=== PATIENT | female | born 1935 | race Caucasian/White ===

== ENCOUNTER 2018-06-10 16:18 | Inpatient (IN) | payer OTHER, MEDICAID ==
[~2018-06-10] VITALS: Ht 157.5 cm; Wt 41.7 kg
[2018-06-10 16:22] VITALS: BP 168/72
[2018-06-10] MEDS ORDERED: ACET1TAB93 PO (16:41)
[2018-06-10] MEDS ORDERED: DOCU-299 PO (16:41)
[2018-06-10] MEDS ORDERED: RISP0.5T3 PO (16:41)
[2018-06-10] MEDS ORDERED: AMLO-272 PO (16:41)
[2018-06-10] MEDS ORDERED: MULT-153 PO (16:41)
--- NOTE | 2018-06-10 16:42 | NUR ---
PATIENT BIB AMBULANCE FROM [facility] TO ED WITH THE CHIEF C/O EXCESS DIARRHEA. PT HAD DIARRHEA X6 TODAY. NO BLOOD IN DIARRHEA PER AMBULANCE PERSONNEL REPORT. PT DENIES N/V AT THIS TIME. ABDOMEN SOFT, ROUND AND NON-TENDER. ACTIVE BOWEL SOUND. SKIN IS PINK/WARM/DRY. AAOX2: BASEELINE. HX OF DEMENTIA. LUNGS CLEAR BL; HR EVEN AND REGULAR; PT DENIES ANY FEVER, CP, SOB, OR COUGH AT THIS TIME. PATIENT STATES PAIN OF 0/10 AT THIS TIME; VSS; PATIENT POSITIONED FOR COMFORT; HOB ELEVATED; BEDRAILS UP X2; BED DOWN. ER MD MADE AWARE OF PT STATUS.
--- NOTE | 2018-06-10 17:04 | NUR ---
REPORT GIVEN TO
--- NOTE | 2018-06-10 18:00 | NUR ---
PATIENT RESTING AT THIS TIME. NO SIGNS OF DISTRESS.
[2018-06-10] MEDS: NACL 0.9% 1,000 ML IV SCH ×3 (18:48→22:02)
--- NOTE | 2018-06-10 19:10 | NUR ---
Pt report given to MONTY SALES. Transfer of care at this time.
[2018-06-10 19:34] LABS: ANION GAP 13.5 (8-16); ASPARTATE AMINOTRANSFERASE 24 U/L (15-37); CARBON DIOXIDE 27.7 mmol/L (21-32); CHLORIDE 99 mmol/L (98-107); CREATININE 0.5 mg/dL (0.6-1.3); GLUCOSE 95 mg/dL (74-106); POTASSIUM 4.2 mmol/L (3.5-5.1); SODIUM SERUM 136 mmol/L (136-145); TOTAL BILIRUBIN 0.5 mg/dL (0.0-1.0); UREA NITROGEN, BLOOD 15 mg/dL (7-18)
[2018-06-10 19:40] LABS: APPEARANCE,URINE CLOUDY (CLEAR); BILIRUBIN,URINE NEGATIVE (NEGATIVE); BLOOD, URINE TRACE-I (NEGATIVE); COLOR,URINE YELLOW (YELLOW); LEUKOCYTE ESTERASE ,URINE 3+ (NEGATIVE); NITRITE, URINE NEGATIVE (NEGATIVE); PH,URINE 7.5 (5.0-9.0); UGLUCOSE NEGATIVE (NEGATIVE)
[2018-06-10 19:41] LABS: BASOPHILS # (AUTO) 0.1 K/uL (0.00-0.22); BASOPHILS % (AUTO) 1.3 % (0.0-2.0); EOSINOPHILS # (AUTO) 0.5 K/uL (0-0.4); EOSINOPHILS % (AUTO) 4.5 % (0.0-4.0); HEMATOCRIT 39.1 % (36-48); HEMOGLOBIN 12.8 g/dL (12.0-16.0); LYMPHOCYTES # (AUTO) 2.6 K/uL (2.5-16.5); LYMPHOCYTES % (AUTO) 23.6 % (20.5-51.1); MEAN CORPUSCULAR HEMOGLOBIN 29 pg (27-31); MEAN CORPUSCULAR HGB CONC 33 g/dL (33-37); MEAN CORPUSCULAR VOLUME 87.4 fL (80-94); MONOCYTES % (AUTO) 8.8 % (1.7-9.3); NEUTROPHILS # (AUTO) 6.9 K/uL (1.8-7.7); NEUTROPHILS % (AUTO) 61.8 % (42.2-75.2); PLATELET COUNT (AUTO) 557 K/uL (140-450); RED BLOOD CELL COUNT(AUTO) 4.48 MIL/uL (4.20-5.40); RED CELL DISTRIBUTION WIDTH 14.4 % (11.6-13.7); WHITE BLOOD COUNT (AUTO) 11.2 K/uL (4.8-10.8)
[2018-06-10 19:42] LABS: RBC,URINE 3-10 (FEW) /HPF (0-5); WBC,URINE TOO MANY TO COUNT /HPF (0-5)
[2018-06-10] MEDS ORDERED: cefTRIAXone 1,000 MG VIAL ONE (20:22)
[2018-06-10] MEDS ORDERED: HYDROcodone/APAP 5/325 MG 1 TAB TAB PO PRN (20:40)
[2018-06-10] MEDS ORDERED: ONDANSETRON 4 MG/2 ML VIAL IM/IVP PRN (20:40)
[2018-06-10] MEDS ORDERED: DOCUSATE SODIUM 100 MG GELCAP PO PRN (20:40)
[2018-06-10] MEDS ORDERED: ACETAMINOPHEN 325 MG TAB PO PRN (20:40)
[2018-06-10] MEDS ORDERED: MORPHINE SULFATE 2 MG/ML SYR IVP PRN (20:40)
[2018-06-10 21:15] VITALS: BP 171/89
--- NOTE | 2018-06-10 21:15 | NUR ---
RECEIVED PT FROM ER VIA VIOLA REPORT GIVEN AT BED SIDE PT IS AAOX4 ON BED REST ON TELEMETRY SR, HL ON RT HAND GAUGE #22 SKIN IS INTACT NOT DISRRHEA AT THIS TIME , MRSA NARES SCREEN TAKEN AND SENT TO LAB PT IS ORIENTED TO THE FLOOR CALL L LIGHT WITHIN REACH
--- NOTE | 2018-06-10 21:26 | NUR ---
Patient will be admitted to care DR. BOBO. Admited to TELE, 122. Will go to rooM 122. Belongings list completed. Report to CARMELA
[2018-06-10 21:32] LABS: PROTHROMBIN TIME 9.8 secs (10.8-13.4)
[2018-06-10 21:33] LABS: CHOL/HDL RATIO 3.3 (1-4.5); PHOSPHORUS 3.6 mg/dL (2.5-4.9); THYROID STIMULATING HORMONE 2.09 uIU/mL (0.34-3.74)
--- NOTE | 2018-06-10 21:45 | NUR ---
DR RUIZ IS HERE AND SEE THE PT
[2018-06-10] MEDS ORDERED: ENALAPRILAT 2.5 MG/2 ML VIAL IVP SCH (22:25)
[2018-06-11] VITALS: BP 132/51
--- NOTE | 2018-06-11 | NUR ---
PT VOIDING WELL NOT DIARRHEA SINCE PT WAS ADMITTING, ON TELEMETRY SR
[2018-06-11 04:00] VITALS: BP 147/72
--- NOTE | 2018-06-11 04:00 | NUR ---
SPONGE BATH GIVEN, LINEN CHANGED NOT DISTRESS NOTED IV ON RT HAND IN;FUSING WELL, ON TELEMETRYSR, NOT BM SINCE PT WAS ADMITTING
[2018-06-11 06:28] LABS: BASOPHILS # (AUTO) 0.1 K/uL (0.00-0.22); EOSINOPHILS # (AUTO) 0.5 K/uL (0-0.4); HEMATOCRIT 33.9 % (36-48); HEMOGLOBIN 11.2 g/dL (12.0-16.0); LYMPHOCYTES # (AUTO) 1.7 K/uL (2.5-16.5); LYMPHOCYTES % (AUTO) 14.6 % (20.5-51.1); MEAN CORPUSCULAR HEMOGLOBIN 29 pg (27-31); MEAN CORPUSCULAR HGB CONC 33 g/dL (33-37); MEAN CORPUSCULAR VOLUME 87.3 fL (80-94); MONOCYTES % (AUTO) 8.5 % (1.7-9.3); NEUTROPHILS # (AUTO) 8.2 K/uL (1.8-7.7); NEUTROPHILS % (AUTO) 71.9 % (42.2-75.2); PLATELET COUNT (AUTO) 541 K/uL (140-450); RED BLOOD CELL COUNT(AUTO) 3.88 MIL/uL (4.20-5.40); RED CELL DISTRIBUTION WIDTH 14.4 % (11.6-13.7); WHITE BLOOD COUNT (AUTO) 11.5 K/uL (4.8-10.8)
[2018-06-11 06:38] LABS: ANION GAP 11.2 (8-16); CARBON DIOXIDE 27.1 mmol/L (21-32); CHLORIDE 102 mmol/L (98-107); CREATININE 0.5 mg/dL (0.6-1.3); GLUCOSE 93 mg/dL (74-106); POTASSIUM 3.3 mmol/L (3.5-5.1); SODIUM SERUM 137 mmol/L (136-145); UREA NITROGEN, BLOOD 13 mg/dL (7-18)
--- NOTE | 2018-06-11 06:38 | NUR ---
PT AWAKE, ALERT NOT BM SINCE PT WAS AD ITING DENIES ANY DISCOMFORT AT THIS TIME ON TELMETRY SR PT WILL BE ENDORSED TODAY SHIFT NURSE FOR CONTINUITY OF CARE
[2018-06-11 06:46] LABS: MAGNESIUM 1.8 mg/dL (1.8-2.4); PHOSPHORUS 3.8 mg/dL (2.5-4.9)
--- NOTE | 2018-06-11 07:25 | NUR ---
RECEIVED REPORT FROM OFFICE AUTOMATION TECHNICIAN NURSE FOR CONTINUITY OF CARE. PT IN STABLE CONDITION. RESPIRATIONS EVEN AND UNLABORED. IV INTACT AND PATENT. SAFETY MEASURES IN PLACE. BED IN LOW POSITION. BED ALARM ON. CALL LIGHT AT BEDSIDE. WILL CONTINUE TO MONITOR.
--- NOTE | 2018-06-11 07:26 | NUR ---
PT TRANSFERRED TO MED SURG, REMOVED ASPHALT SPREADER OPERATOR AT THIS TIME. PT IN STABLE CONDITION.
--- NOTE | 2018-06-11 07:53 | NUR ---
PATIENT HAS BEEN SCREENED AND CATEGORIZED HIGH NUTRITION RISK. PATIENT WILL BE SEEN WITHIN 1-2 DAYS OF ADMISSION. 06/11/18-06/12/[address]
[2018-06-11 08:00] VITALS: BP 124/68
[2018-06-11] MEDS: LACTOBACILLUS RHAMNOSUS GG 1 EACH CAP PO SCH (09:41)
[2018-06-11] MEDS: amLODIPine 5 MG TAB PO SCH (09:41)
[2018-06-11] MEDS: risperiDONE 1 MG TAB PO SCH ×2 (09:42→20:16)
[2018-06-11] MEDS: PSYLLIUM 12.2 GM/PKT PO SCH (09:43)
--- NOTE | 2018-06-11 10:00 | NUR ---
PT IN STABLE CONDITION. RESPIRATIONS EVEN AND UNLABORED. WILL CONTINUE TO MONITOR. BED IN LOW POSITION, BED ALARM ON, CALL LIGHT AT BEDSIDE.
[2018-06-11] MEDS ORDERED: POTASSIUM CHLORIDE 10 MEQ TABER PO SCH (11:00)
[2018-06-11 12:00] VITALS: BP 150/77
--- NOTE | 2018-06-11 13:18 | NUR ---
PT IN STABLE CONDITION. PT SLEEPING AT THIS TIME. WILL CONTINUE TO MONITOR. BED IN LOW POSITION. CALL LIGHT AT BEDSIDE.
[2018-06-11] MEDS: NACL 0.9% 1,000 ML IV SCH (13:19)
--- NOTE | 2018-06-11 14:06 | NUR ---
IV REMOVED AT THIS TIME. NO INJURY AT SITE NOTED. WILL CONTINUE TO MONITOR.
--- NOTE | 2018-06-11 14:36 | NUR ---
06/11/18 RD INITIAL ASSESSMENT COMPLETED PLEASE REFER TO NUTRITION ASSESSMENT UNDER CARE ACTIVITY FOR ESTIMATED NUTRITIONAL NEEDS. 1. CONTINUE BRAT MECHANICALLY SOFT DIET TOLERATED 2. IF AND WHEN PATIENT IS MEDICALLY STABLE, CONSIDER ADVANCING DIET TO CARDIAC 3. RD PROVIDED TLC DIET NUTRITION EDUCATION 4. RD TO FOLLOW-UP 2-3 DAYS, HIGH RISK [address]ER[address] RD
--- NOTE | 2018-06-11 15:09 | NUR ---
CHANGED AND REPOSITIONED. PT TOLERATED WELL. BED IN LOW POSITION, BED ALARM ON, CALL LIGHT AT BEDSIDE. WILL CONTINUE TO MONITOR.
--- NOTE | 2018-06-11 15:15 | NUR ---
PT REFUSED NEW IV INSERTION AT THIS TIME.
[2018-06-11 16:00] VITALS: BP 137/65
--- NOTE | 2018-06-11 19:24 | NUR ---
GAVE REPORT TO TRAINING AND DEVELOPMENT PROJECT LEADER NURSE FOR CONTINUITY OF CARE. PT IN STABLE CONDITION.
--- NOTE | 2018-06-11 19:25 | NUR ---
RECEIVED REPORT FROM HENRRY LAMB FOR CONTINUITY OF CARE. PT A/OX3 ON ROOM AIR. PT IS ABLE TO MAKE NEEDS KNOWN, ABLE TO FOLLOW COMMANDS. PT IS ON BEDREST AND SKIN IS INTACT. PT HAS NO IV ACCESS AND REFUSES NEW IV. VITAL SIGNS WITHIN NORMAL LIMITS. PT STABLE, DENIES HAVING ANY PAIN, NO SIGNS OF DISTRESS NOTED AT THIS TIME. PT POSITIONED FOR COMFORT. BED IN LOWEST POSITION, BED ALARM ON. WILL CONTINUE TO MONITOR.
--- NOTE | 2018-06-11 19:30 | NUR ---
RECEIVED REPORT FROM HENRRY LAMB FOR CONTINUITY OF CARE. PT A/OX3 ON ROOM AIR, ESTONIAN SPEAKING. PT IS ABLE TO MAKE NEEDS KNOWN, ABLE TO FOLLOW COMMANDS. PT AMBULATES WITH STEADY GAIT AND SKIN IS INTACT. PT HAS NO IV ACCESS AND REFUSES NEW IV. VITAL SIGNS WITHIN NORMAL LIMITS. PT STABLE, DENIES HAVING ANY PAIN, NO SIGNS OF DISTRESS NOTED AT THIS TIME. PT POSITIONED FOR COMFORT. BED IN LOWEST POSITION, BED ALARM ON. WILL CONTINUE TO MONITOR. Addendum: 06/12/18 at 0353 by Darlene Jimenes RN DISREGARD.
[2018-06-11] MEDS: DEXT 5% / NACL 0.45% 1,000 ML IV SCH (20:20)
--- NOTE | 2018-06-11 22:35 | NUR ---
PT REFUSED TO LET US START IV. PT SEEMS VERY CONFUSED AND AGITATED. PT STATES THAT SHE "IS ON A SHIP AND THE CAPTAIN TOLD HER SHE DIDN'T HAVE TO DO ANYTHING WE SAID." EXPLAINED TO DR KLEIN THE SITUATION. DR KLEIN WENT TO SEE PT AND SPOKE TO HER AT LENGTH REGARDING HER INFECTION AND THE NEED FOR HER IV ANTIBIOTIC. PT JUST TOLD HER "YOU CAN'T MAKE ME DO ANYTHING. I WANT TO SEE THE OTHER TRACY, THE TRACY WHO BRINGS ME MY FOOD ALL DAY. HE HAS BEEN HERE ALL DAY." DR KLEIN ASKED HER IF SHE WOULD TAKE PILLS INSTEAD AND PT SAID YES.
[2018-06-11] MEDS ORDERED: CEPHALEXIN 500 MG CAP PO ONE (22:45)
--- NOTE | 2018-06-11 23:12 | NUR ---
PT REFUSED PO ANTIBIOTIC. PT STATES I MADE UP THE ORDERS AND SHE IS NOT TAKING ANYTHING BECAUSE "YOU GUYS WANT TO POISON ME AND KILL ME" STATES PT. PT STATES SHE IS LEAVING IN THE MORNING AND GOING BACK TO THE [place] THAT SHE CAME FROM.
[2018-06-12] VITALS: BP 130/55
--- NOTE | 2018-06-12 | NUR ---
VITAL SIGNS WITHIN NORMAL LIMITS. PT STABLE, DENIES HAVING ANY PAIN, NO SIGNS OF DISTRESS NOTED AT THIS TIME. PT POSITIONED FOR COMFORT. BED IN LOWEST POSITION, BED ALARM ON. WILL CONTINUE TO MONITOR.
--- NOTE | 2018-06-12 00:21 | NUR ---
PT REFUSED TO GO GET CT OF HEAD DONE WHEN DIESEL POWERPLANT MECHANIC SANAZ CAME TO GET PT. EXPLAINED TO PT WHAT A CT WAS AND WHY DR ORDERED IT FOR HER AND PT SAID "NO YOU GUYS HAVE ENOUGH, I WANT YOU TO GIVE ME MY TRANSFER PAPERS IN THE MORNING THEN WE'LL TALK."
--- NOTE | 2018-06-12 02:30 | NUR ---
PT RESTING, NO SIGNS OF DISTRESS NOTED AT THIS TIME. PT POSITIONED FOR COMFORT. BED IN LOWEST POSITION, BED ALARM ON. WILL CONTINUE TO MONITOR.
--- NOTE | 2018-06-12 04:35 | NUR ---
PT STILL RESTING, DENIES PAIN. NO SIGNS OF DISTRESS NOTED AT THIS TIME. PT POSITIONED FOR COMFORT. BED IN LOWEST POSITION, BED ALARM ON. WILL CONTINUE TO MONITOR.
--- NOTE | 2018-06-12 07:35 | NUR ---
ENDORSED PT TO DAY SHIFT HENRRY FORDE FOR CONTINUITY OF CARE. PT IN STABLE CONDITION.
--- NOTE | 2018-06-12 07:37 | NUR ---
RECEIVED BEDSIDE REPORT FROM COLLAR FOLDER OPERATOR NURSE. PT A/OX3 TO NAME, TIME AND PLACE. ON ROOM AIR. PT IS ABLE TO MAKE NEEDS KNOWN, ABLE TO FOLLOW COMMANDS. PT NEEDS ASSIST WITH AMBULATION. SKIN IS INTACT AND CLEAN. PT HAS NO IV ACCESS AND REFUSES NEW IV. DENIES PAIN, NO SIGNS OF DISTRESS NOTED AT THIS TIME. PT POSITIONED FOR COMFORT. FALL PRECAUTION IN PLACE. BED IN LOWEST POSITION, BED ALARM ON. WILL CONTINUE TO MONITOR.
[2018-06-12 08:00] VITALS: BP 135/68
--- NOTE | 2018-06-12 08:33 | NUR ---
Morgue Attendant Note: Higinio Vera from [facility] , patient has been living at their facility since March 2018. She stated patient does not have an Advance Directive in her chart at [facility] and her son Cece Rojas is in involved with her care. Patient's pcp is from [facility]. [facility] bulk tank driver is available on Friday-Friday from morning-2pm. Professor Of Fine Art and/or Plate Corrector will follow up as needed.
[2018-06-12] MEDS: DEXT 5% / NACL 0.45% 1,000 ML IV SCH ×2 (08:50→20:32)
--- NOTE | 2018-06-12 09:20 | NUR ---
PT REFUSED TO IV INSERTION. NOTIFIED.
--- NOTE | 2018-06-12 10:20 | NUR ---
PT RECEIVED A FOOD TRAY FROM [facility].
[2018-06-12] MEDS ORDERED: BISACODYL 10 MG SUPP RC SCH (10:30)
[2018-06-12] MEDS ORDERED: LORazepam 2 MG/ML VIAL IVP SCH (10:30)
[2018-06-12] MEDS: amLODIPine 5 MG TAB PO SCH (11:16)
[2018-06-12] MEDS: LACTOBACILLUS RHAMNOSUS GG 1 EACH CAP PO SCH (11:16)
[2018-06-12] MEDS: risperiDONE 1 MG TAB PO SCH ×2 (11:17→20:29)
[2018-06-12] MEDS: PSYLLIUM 12.2 GM/PKT PO SCH (11:20)
--- NOTE | 2018-06-12 11:20 | NUR ---
ADMINISTERED MEDS PER MD ORDER. PT REFUSED TO GET SUBQ INJECTION. PT TOLERATED WELL. NO SIGN OF DISTRESS NOTED.
--- NOTE | 2018-06-12 13:15 | NUR ---
PT HAD A BM, WATERY AND ONE SOLID STOOL. COLLECTED STOOL AND DROPPED OFF TO LAB.
[2018-06-12] MEDS: metroNIDAZOLE 500 MG TAB PO SCH ×2 (13:57→18:15)
--- NOTE | 2018-06-12 15:05 | NUR ---
PT REFUSED TO GET IV ACCESS AND CT HEAD SCAN. NOTIFIED.
[2018-06-12 16:00] VITALS: BP 110/51
--- NOTE | 2018-06-12 18:25 | NUR ---
PT IS EATING DINNER ON BED. NO SIGNS OF DISTRESS NOTED.
--- NOTE | 2018-06-12 19:23 | NUR ---
GAVE BEDSIDE REPORT TO RADAR REPAIRER NURSE FOR CONTINUITY OF CARE. PT IS IN STABLE CONDITION.
--- NOTE | 2018-06-12 19:25 | NUR ---
RECEIVED FROM AM RN IN BED SLEEPING. NO IVF SITE IN PLACE RT PER AM RN PT. REFUSED . MD AWARE OF IT. DX. OF DIARRHEA AND WITH UTI. BED ALARM ON. NEEDS WILL BE ANTICIPATED AND WILL BE MET. CALL LIGHT WITH IN REACH. ABLE TO CALL FOR HELP.
[2018-06-12 20:24] VITALS: BP 126/68
[2018-06-12] MEDS: SULFAMETH/TRIMETH DS 800/160MG 1 TAB PO SCH (20:29)
--- NOTE | 2018-06-12 21:21 | NUR ---
PT. REFUSED TO HAVE CT SCAN HEAD WITHOUT CONTRAST. EXPLAINED EARLIER TO HER BY TECH. REFUSED. RE-EXPLAINED TO HER NOW WHY MD ORDERED TEST. STILL REFUSED. "NO" TALKED TO RESIDENT MD RUIZ ABOUT IT. " I WILL RE-ORDER THE ORDER AND I WILL TRY TO TALK TO HER " DOORPERSON OR LUGGAGE PORTER AWARE.
--- NOTE | 2018-06-13 | NUR ---
PT. SLEEPING WELL. TURNED BY CNAS. ASSISTED TO TURN ON SIDES. PILLOW SUPPORT TO PRESSURE AREAS. CALL LIGHT WITH IN REACH. NO SOB. DENIES PAIN. VITAL SIGNS WITH IN NORMAL LIMITS. REFUSED TO HAVE IVF INSERTED . EXPLAINED WHY WE NEED TO INSERT. REFUSED . STATED THAT SHE HAS ABT P.O. NOW. WOKE UP EASILY WHEN VITAL SIGNS TAKEN.
[2018-06-13 00:50] VITALS: BP 110/55
--- NOTE | 2018-06-13 03:02 | NUR ---
CHECKED ON PT. SLEEPING WELL. TURNED BY CNAS Q 2H. PILLOW SUPPORT TO PRESSURE AREAS. NO RESTLESSNESS. CALL LIGHT WITH IN REACH.
[2018-06-13 04:06] LABS: T4 (THYROXINE) 10.2 ug/dL (4.5-12.0)
--- NOTE | 2018-06-13 05:49 | NUR ---
AM PERSONAL HYGIENE RENDERED BY CNAS. PT. DRY AND CLEAN. NO SOB. AFEBRILE. NEEDS ANTICIPATED AND MET. SLEEPING WELL THIS SHIFT.
--- NOTE | 2018-06-13 07:18 | NUR ---
RECEIVED BEDSIDE REPORT FROM STEAM HAMMER OPERATOR NURSE. AOX2. DENIES PAIN. ON RA. RESPIRATION EVEN AND UNLABORED. NO IV ACCESS. MD NOTIFIED. SKIN INTACT, CLEAN AND DRY. PT IS BEDREST. DISCUSSED PLAN OF CARE WITH PATIENT, AND PATIENT VERBALIZED UNDERSTANDING. SAFETY MEASURES IN PLACE. CALL LIGHT WITHIN REACH.
[2018-06-13 08:00] VITALS: BP 125/60
[2018-06-13 08:03] LABS: ANION GAP 12.2 (8-16); CARBON DIOXIDE 26.8 mmol/L (21-32); CHLORIDE 100 mmol/L (98-107); CREATININE 0.8 mg/dL (0.6-1.3); GLUCOSE 89 mg/dL (74-106); SODIUM SERUM 135 mmol/L (136-145); UREA NITROGEN, BLOOD 11 mg/dL (7-18)
[2018-06-13 08:04] LABS: BASOPHILS # (AUTO) 0.1 K/uL (0.00-0.22); BASOPHILS % (AUTO) 1.4 % (0.0-2.0); EOSINOPHILS # (AUTO) 0.6 K/uL (0-0.4); EOSINOPHILS % (AUTO) 8.3 % (0.0-4.0); HEMATOCRIT 36.9 % (36-48); HEMOGLOBIN 12.1 g/dL (12.0-16.0); LYMPHOCYTES # (AUTO) 2.1 K/uL (2.5-16.5); LYMPHOCYTES % (AUTO) 27.9 % (20.5-51.1); MAGNESIUM 2.1 mg/dL (1.8-2.4); MEAN CORPUSCULAR HEMOGLOBIN 29 pg (27-31); MEAN CORPUSCULAR HGB CONC 33 g/dL (33-37); MEAN CORPUSCULAR VOLUME 86.9 fL (80-94); MONOCYTES # (AUTO) 0.7 K/uL (0.8-1.0); NEUTROPHILS # (AUTO) 3.9 K/uL (1.8-7.7); NEUTROPHILS % (AUTO) 53.4 % (42.2-75.2); PHOSPHORUS 4.5 mg/dL (2.5-4.9); PLATELET COUNT (AUTO) 568 K/uL (140-450); RED BLOOD CELL COUNT(AUTO) 4.25 MIL/uL (4.20-5.40); RED CELL DISTRIBUTION WIDTH 14.7 % (11.6-13.7); WHITE BLOOD COUNT (AUTO) 7.4 K/uL (4.8-10.8)
[2018-06-13] MEDS: PSYLLIUM 12.2 GM/PKT PO SCH (09:00)
[2018-06-13] MEDS: LACTOBACILLUS RHAMNOSUS GG 1 EACH CAP PO SCH (09:00)
[2018-06-13] MEDS: metroNIDAZOLE 500 MG TAB PO SCH ×3 (09:00→17:20)
[2018-06-13] MEDS: risperiDONE 1 MG TAB PO SCH ×2 (09:00→21:00)
[2018-06-13] MEDS: amLODIPine 5 MG TAB PO SCH (09:00)
[2018-06-13] MEDS: SULFAMETH/TRIMETH DS 800/160MG 1 TAB PO SCH ×2 (09:00→20:17)
[2018-06-13] MEDS ORDERED: cefTRIAXone 1,000 MG in LIDOCAINE MPF 1% - 5 mL VIAL 2.1 ML IM SCH (09:00)
--- NOTE | 2018-06-13 09:46 | NUR ---
ADMINISTERED MED PER MD ORDER. PT TOLERATED WELL. PT IS RESTING ON BED. NO SIGNS OF DISTRESS NOTED. SAFETY MEASURES IN PLACE.
[2018-06-13] MEDS: DEXT 5% / NACL 0.45% 1,000 ML IV SCH (09:50)
--- NOTE | 2018-06-13 11:20 | NUR ---
PT IS WATCHING TV ON BED. NO SIGNS OF DISTRESS NOTED.
[2018-06-13] MEDS ORDERED: METR500T1 PO (12:10)
[2018-06-13] MEDS ORDERED: SULF1TAB12 PO (12:10)
[2018-06-13] MEDS ORDERED: LACT10CA PO (12:10)
--- NOTE | 2018-06-13 13:15 | NUR ---
Nurse Infection Control Notes: I called [facility] and I spoke to Belinda (Facility Staff) to inform her that patient is ready for discharge today and that transportation needs to be arrange for patient to be orange picking supervisor and take back to their facility. Per Belinda Patient can returned to their facility however; they are unable to arrange transport back for patient due to the facility not been able to provide transportation and staff during the weekend. I inform her that in that case Patient's ins. ([employer]) will be contacted by these senior copywriter to the transportation line in the attempt to set up transport back today for patient to their facility. She thanked me for the information and I ended the call. Addendum: 06/13/18 at 1740 by Renee Wetzel CM Nurse Infection Control Notes: I called [facility] and I spoke to Belinda at (Facility Staff) to inform her that patient is ready for discharge today and that transportation needs to be arrange for patient to be orange picking supervisor and take back to their facility. Per Belinda Patient can returned to their facility however; they are unable to arrange transport back for patient due to the facility only provides transport Friday to Friday and not been able to provide transportation and staff during the weekend. I inform her that in that case Patient's ins. ([employer]) will be contacted by these senior copywriter to the transportation line in the attempt to set up transport back today for patient to their facility. She thanked me for the information and I ended the call.
--- NOTE | 2018-06-13 13:20 | NUR ---
PT IS SLEEPING. NO SIGN OF DISTRESS NOTED.
--- NOTE | 2018-06-13 14:00 | NUR ---
Social Workers Notes: I called [employer] [facility] Line at to discuss and arrange Patient's transportation back to her facility " [facility]" Gave responded the call, Gather Patient information and stated that he has put an order and the rn case manager hospice from transportation Department will be calling me back with in 10-15 mins., to discuss transportation options and services. I thanked him for information and I ended the call.
--- NOTE | 2018-06-13 14:30 | NUR ---
Furniture Shampooer notes: Carson from [employer] . Call me back stating that Patient's transport back to her facility [facility] has been arrange with [facility] and that she will be brick picker at about 20:00 tonight. I endorse the information to charge nurse Guzman. Addendum: 06/13/18 at 1823 by Renee Wetzel CM time was about 15:30 on 06/13/18 Furniture Shampooer notes: Carson from [employer] . Call me back stating that Patient's transport back to her facility [facility] has been arrange with [facility] and that she will be brick picker at about 20:00 tonight. I endorse the information to charge nurse Young
--- NOTE | 2018-06-13 14:35 | NUR ---
RECEIVED CALL FROM AVILA FROM [employer] [facility]. PER AVILA, THEY WILL MEAT HANGER THE PT AT 1999. INFORMED THAT PT IS IN ROOM 122A.
--- NOTE | 2018-06-13 15:00 | NUR ---
Green Building Design Specialist Notes: I received a call from [employer] [facility] Silver Wrapper Carson at transportation line . Per Carson [facility] usually do not provide services or transport to patient's over the weekend, However she will be making and exception for patient and will be making arrangements for her transport back to [facility] today. Carson asked level of need on transportation. I informed her that Patient will need wheelchair transport and has no IV medications. (According to previous discussion between these quality analyst/technical writer and Charge nurse jacinda in a consult addressing level of care and needed transport). Per Carson she will be making arrangements and will be calling me back to provide patient time to be order picker. I thank her for her assistance and I ended the call.
[2018-06-13 16:00] VITALS: BP 102/62
--- NOTE | 2018-06-13 17:23 | NUR ---
ADMINISTERED MED PER MD ORDER. PT TOLERATED WELL. NO SIGN OF DISTRESS NOTED.
--- NOTE | 2018-06-13 18:20 | NUR ---
CALLED [facility] AND SPOKE TO ITZEL Freedman FROM [facility]. NOTIFIED ITEZL THAT PT WILL BE WAREHOUSE GUARD BY [facility] AT 1999 AND TRANSFER TO [facility]. ITZEL STATED THAT SHE WILL MAKE A NOTE OF THE TRANSFER.
--- NOTE | 2018-06-13 19:10 | NUR ---
GAVE BEDSIDE REPORT TO AFTER SCHOOL PROGRAM TEACHER NURSE FOR CONTINUITY OF CARE. PT IS IN STABLE CONDITION.
--- NOTE | 2018-06-13 19:11 | NUR ---
Patient's Plan of Care was discussed and reviewed with SPECTROGRAPH OPERATOR: MADONNA BECKER
--- NOTE | 2018-06-13 19:11 | NUR ---
RECD. RESTING IN BED, AWAKE, A/OX2, RESPIRATION EVEN AND UNLABORED. NO IV LINE. SAFETY MEASURES ENFORCED. BED ON ALARM. REORIENTED TO HOSPITAL SETTING. ADDITIONAL INSTRUCTIONS GIVEN, MADE AWARE THAT SHE IS FOR TRANSFER BACK TO TO [facility] BUT DOES NOT BELIEVE TONIGHT, INSISTED IT WOULD BE TOMORROW MORNING. REORIENTED AGAIN BUT STILL REFUSED TO BELIEVE. ON BILATERAL LEG SEQUENTIALS. DENIES PAIN 0/10.
--- NOTE | 2018-06-13 19:17 | NUR ---
DUE MEDICATION FOR THE NIGHT GIVEN, ASK WHAT IS THE INDICATION FOR EACH MEDICATION. AGREED TO TAKE BACTRIM ONLY. REFUSED RISPERDAL. STATED "I DON'T WANT TO TAKE ANY MEDICATION THAT WILL INTERFERE WITH MY THINKING.". STATED SHE HAD ALREADY THE HEPARIN THIS MORNING, EXPLAINED THE DOCTOR ORDERED TO BE TAKEN TWICE TO PREVENT BLOOD CLOTS IN THE LEGS AND SINCE SHE DOES NOT AMBULATE MUCH SHE NEEDS TO HAVE IT, POINTED TO HER SEQUENTIALS AND STATED SHE WANTS TO HAVE IT ONLY IN THE MORNING. EXPLAINED MORE THE ADVANTAGE OF TAKING IT TWICE BUT STILL REFUSED.
--- NOTE | 2018-06-13 20:40 | NUR ---
AGREED TO TAKE HEPARIN WHEN INFORMED THAT HER PLATELET RESULT IS HIGH.
--- NOTE | 2018-06-13 21:00 | NUR ---
REORIENTED TO HOSPITAL SETTING. MADE AWARE AGAIN THAT SHE HAVE TO GO BACK TO [facility], AGAIN VERBALIZED THAT SHE WANTS TO GO BACK IN THE SNF TOMORROW MORNING BECAUSE SHE IS ALREADY DISCHARGE. UNABLE TO COMPREHEND.
--- NOTE | 2018-06-14 00:05 | NUR ---
[facility] CAME, PATIENT [place], THROW HER UNDERWEAR TO ONE OF THE AMBULANCE PERSONNEL WHILE BEING CHANGED TO HER HOME CLOTHES. AFTER QUESTIONS ASKED WAS ANSWERED, ASSISTED TO TRANSFER TO THE [facility].
--- NOTE | 2018-06-14 00:30 | NUR ---
TAKEN TO HOSPITAL LOBBY PARKING VIA GURNEY IN STABLE CONDITION FOR TRANSFER TO [facility] ACCOMPANIED BY [facility] PERSONNEL.
== END 2018-06-13 22:00 | disposition home or self-care (01) | DRG 372 ==
LOC: MED 16:18 → MTU 20:39
PROVIDERS: ADMIT General Practice; ATTEND General Practice
DX: A04.9 Bacterial intestinal infection, unspecified (principal); N39.0 Urinary tract infection, site not specified; E44.0 Moderate protein-calorie malnutrition; Z68.1 Body mass index [BMI] 19.9 or less, adult; K92.9 Disease of digestive system, unspecified; A08.4 Viral intestinal infection, unspecified; R31.9 Hematuria, unspecified; I10 Essential (primary) hypertension; F03.90 Unspecified dementia, unspecified severity, without behavioral disturbance, psychotic disturbance, mood disturbance, and anxiety; Z66 Do not resuscitate; E78.5 Hyperlipidemia, unspecified; E87.6 Hypokalemia; F41.1 Generalized anxiety disorder; Z79.899 Other long term (current) drug therapy; Z90.81 Acquired absence of spleen
CPT/HCPCS: 36415; 71045; 74018; 80048; 80053; 81001; 82150; 83036; 83605; 83690; 83735; 83880; 84100; 84436; 84443; 84484; 85025; 85610; 85730; 87040; 87045; 87081; 87086; 93005; 96360; 97110; 97116; 97530; 99285; J0696; J1644; J2060; J3490; J7030; J7060

== ENCOUNTER 2018-06-26 17:06 | Emergency (ER) | payer OTHER, MEDICAID ==
[~2018-06-26] VITALS: Ht 154.9 cm; Wt 48.5 kg
[~2018-06-26 17:06] MED LIST: ACET1TAB93 PO; AMLO-272 PO; DOCU-299 PO; LACT10CA PO; METR500T1 PO; MULT-153 PO; RISP0.5T3 PO; SULF1TAB12 PO
[2018-06-26 17:08] VITALS: BP 165/76
--- NOTE | 2018-06-26 17:08 | NUR ---
PT BIBA BLS TO BED 9
--- NOTE | 2018-06-26 17:15 | NUR ---
PT IS A 82 Y/O FEMALE BIB EMS WHO PRESENTS TO THE ED FOR FALL. PER EMS PT HAD UNWITNESSED FALL IN THE BATHROOM AT FACILITY. PT REPORTS 10/10 ACHING BACK, NECK PAIN .NO OBVIOUS TRAUMA/DEFORMITY. PT DENIES CP, SOB, N/V/D. PT ACTING APPROPRIATE FOR MENTAL STATUS, RR EVEN/UNLABORED. PT REPOSITIONED FOR COMFORT, BED IN LOWEST POSITION. ER MD DR. CLARKE NOTIFIED. WILL CONTINUE TO MONITOR. PMH---DEMENTIA, HTN NKA
--- NOTE | 2018-06-26 17:30 | NUR ---
PATIENT REPORT GIVEN TO DINAH SALES. TRANSFER OF CARE AT THIS TIME.
--- NOTE | 2018-06-26 19:16 | NUR ---
REPORT GIVEN TO HENRRY VIEYRA
--- NOTE | 2018-06-26 19:28 | NUR ---
PT RESTING IN BED. PT SPEACH IS MUMBLED AND INAPROPRIATE, PER JHONY SALES THAT IS PT BASELINE. PT GRIMACING IN PAIN WHEN WE ADJUSTED IN BED. VSS.
[2018-06-26] MEDS ORDERED: KETOROLAC 60 MG/2 ML VIAL IM ONE (19:45)
--- NOTE | 2018-06-26 20:27 | NUR ---
PT GOING TO CT AT THIS TIME
--- NOTE | 2018-06-26 21:02 | NUR ---
PT BACK FROM CT, VSS
--- NOTE | 2018-06-26 21:18 | NUR ---
PT IS AAOX4 AT THIS TIME. PT REPORTS SHE HAS NO PAIN AT THIS TIME. VSS. WILL CONTINUE TO MONITOR.
--- NOTE | 2018-06-27 00:14 | NUR ---
PER CURLY NORRIS, [facility] TO PICK PT UP PT AT 09:00 ON 06/27/18.
--- NOTE | 2018-06-27 00:14 | NUR ---
Karla garcia in [facility] - 06/27/18 at 0135 by MARIANA PER CURLY NORRIS [facility] TO PICK PT UP PT AT 09:00 ON 12/28/18.
--- NOTE | 2018-06-27 03:14 | NUR ---
PT RESTING IN BED, PT AROUSABLE TO NAME, AAOX3, COOPERATIVE, BUE EQUAL STRONG. PT DENIES PAIN AT THIS TIME.
--- NOTE | 2018-06-27 03:36 | NUR ---
PT O2 SAT AT 87. PT SLEEPING IN BED, SLOUCHED DOWN LOW ON BED. REPOSITIONED PT, PUT IN FOWLERS POSITION, O2 SAT INCREASED TO 96%. PT AAOX3 AND COOPERATIVE. BRUNO SALES ASSISTING PT WITH BEDPAN AT THIS TIME.
--- NOTE | 2018-06-27 06:18 | NUR ---
PT REPORTS ACHY PAIN IN BACK OF HEAD FROM FALL, PT RATES PAIN AT 3/10. PT AAOX2, PT STATES "I AM EATING A BOWL OF CEREAL". PT HAS NOT HAD BREAKFAST YET. VSS.
--- NOTE | 2018-06-27 07:15 | NUR ---
RECIEVED REPORT FROM JARRELL/HENRRY, PATIENT STILL WAITING FOR TRANSFER, VSS AT THIS TIME
--- NOTE | 2018-06-27 07:47 | NUR ---
PT SITTING UP IN BED EATING BREAKFEAST
--- NOTE | 2018-06-27 08:14 | NUR ---
[facility] CALLED-[facility] 8:45-9:00AM.
[2018-06-27 08:57] VITALS: BP 132/59
--- NOTE | 2018-06-27 08:57 | NUR ---
Patient transport arrived. Spoke with teresa mcmullne regarding patients return.
--- NOTE | 2018-06-27 08:58 | NUR ---
PT DISCHARGED WITH VSS, BELONGINGS SENT WITH PATIENT, PAPERWORK GIVEN TO TRANPORT TEAM, PT STABLE UPON TRANSFER
== END 2018-06-27 08:58 | disposition home or self-care (01) ==
LOC: MED 17:06
DX: M54.5 Low back pain (principal); F03.90 Unspecified dementia, unspecified severity, without behavioral disturbance, psychotic disturbance, mood disturbance, and anxiety; I10 Essential (primary) hypertension; Z79.899 Other long term (current) drug therapy; W01.0XXA Fall on same level from slipping, tripping and stumbling without subsequent striking against object, initial encounter; Y93.89 Activity, other specified; Y92.89 Other specified places as the place of occurrence of the external cause; Y99.8 Other external cause status
CPT/HCPCS: 70450; 72125; 72131; 96372; 99284; J1885

== ENCOUNTER 2020-08-14 15:53 | Emergency (ER) | payer OTHER, MEDICAID ==
[~2020-08-14] VITALS: Ht 160 cm; Wt 44.5 kg
[~2020-08-14 15:53] MED LIST changes: -MULT-153 PO; +MULT-2112 PO; +SULF-979 PO; -SULF1TAB12 PO
--- NOTE | 2020-08-14 15:53 | NUR ---
Patient BIBA BLS, transferred to bed 6. RN evaluating the patient at bedside.
[2020-08-14 16:01] VITALS: BP 155/95
--- NOTE | 2020-08-14 16:10 | NUR ---
84 Y/O F KENNETH FROM [facility], PT STATES SHE FELL OFF OF CHAIR YESTERDAY AND HAS BEEN HAVING UPPER R BACK PAIN WITH BILATERAL TOE PAIN IN 1ST DIGITS. PT UNABLE TO AMBULATE, TYPICALLY AMBULATES WITH WALKER. BILATERAL TOES UNABLE TO FLEX OR EXTEND, BRUISING VISIBLE ON BOTH TOES. PT STATES HER TOW PAIN IS CHRONIC, BUT HER UPPER BACK PAIN COMES AND GOES. PMH: DEMENTIA, HTN NKA
--- NOTE | 2020-08-14 16:18 | NUR ---
mechanical laboratory technician at bedside.
[2020-08-14] MEDS ORDERED: IBUP-1842 PO (17:46)
--- NOTE | 2020-08-14 18:04 | NUR ---
Patient to be RETURNING TO [facility]. Receiving facility has accepting physician and available space. Patient or responsible green party has agreed to transfer and signed form. Patient belongings inventoried and will be sent with patient. Copy of nursing notes, lab reports, EKG, Physicians Orders and X-rays to be sent with patient. Report called to [facility] (NO NURSING STAFF AVAILABLE TO GIVE REPORT at receiving facility. [facility] ambulance service has been called for transfer. ETA is 1900.
[2020-08-14 18:50] VITALS: BP 155/95
--- NOTE | 2020-08-14 18:50 | NUR ---
Patient discharged with v/s stable. Written and verbal after care instructions given and explained. Patient alert, oriented and verbalized understanding of instructions. Ambulance Transport with to fpc. All questions addressed prior to discharge. ID band removed. Patient advised to follow up with PMD. Rx of given. Patient educated on indication of medication including possible reaction and side effects. Opportunity to ask questions provided and answered. RX: IBUPROFEN
== END 2020-08-14 18:50 ==
LOC: MED 15:53
DX: S90.121A Contusion of right lesser toe(s) without damage to nail, initial encounter (principal); M54.6 Pain in thoracic spine; F03.90 Unspecified dementia, unspecified severity, without behavioral disturbance, psychotic disturbance, mood disturbance, and anxiety; I10 Essential (primary) hypertension; Z79.899 Other long term (current) drug therapy; W19.XXXA Unspecified fall, initial encounter; Y93.89 Activity, other specified; Y92.89 Other specified places as the place of occurrence of the external cause; Y99.8 Other external cause status
CPT/HCPCS: 71045; 73660; 99284

== ENCOUNTER 2022-06-25 13:34 | Emergency (ER) | payer OTHER, MEDICAID ==
[~2022-06-25] VITALS: Ht 162.6 cm; Wt 52.2 kg
[~2022-06-25 13:34] MED LIST changes: +IBUP-1842 PO; +SULF-954 PO; -SULF-979 PO
--- NOTE | 2022-06-25 13:42 | NUR ---
PATIENT BIBA TO BED 2.
[2022-06-25 13:43] VITALS: BP 157/80
[2022-06-25] MEDS ORDERED: ONDANSETRON 4 MG/2 ML VIAL IVP ONE (14:10)
[2022-06-25] MEDS ORDERED: NACL 0.9% 1,000 ML IV ONE (14:10)
--- NOTE | 2022-06-25 14:33 | NUR ---
ASSUMED PATIENT CARE, NURSING ASSESSMENT COMPLETED.
[2022-06-25 14:37] LABS: HEMOGLOBIN 14.5 g/dL (12.0-16.0); MEAN CORPUSCULAR HEMOGLOBIN 30 pg (27-31); MEAN CORPUSCULAR HGB CONC 33 g/dL (33-37); MEAN CORPUSCULAR VOLUME 91.2 fL (80-94); PLATELET COUNT (AUTO) 525 K/uL (140-450); RED BLOOD CELL COUNT(AUTO) 4.83 MIL/uL (4.20-5.40); RED CELL DISTRIBUTION WIDTH 14.5 % (11.6-13.7); WHITE BLOOD COUNT (AUTO) 14.9 K/uL (4.8-10.8)
[2022-06-25 15:09] LABS: ALBUMIN 3.7 g/dL (3.4-5.0); ANION GAP 12.6 (8-16); ASPARTATE AMINOTRANSFERASE 38 U/L (15-37); CARBON DIOXIDE 28.4 mmol/L (21-32); CHLORIDE 100 mmol/L (98-107); CREATININE 0.6 mg/dL (0.6-1.3); GLUCOSE 130 mg/dL (74-106); LIPASE 87 U/L (73-393); SODIUM SERUM 137 mmol/L (136-145); TOTAL BILIRUBIN 0.7 mg/dL (0.0-1.0); UREA NITROGEN, BLOOD 20 mg/dL (7-18)
[2022-06-25 15:10] LABS: LYMPHOCYTES % (MANUAL) 1 % (20-46); MONOCYTES % (MANUAL) 5 % (5-12)
--- NOTE | 2022-06-25 15:33 | NUR ---
TO CT VIA [facility].
[2022-06-25 16:58] LABS: APPEARANCE,URINE SL CLOUDY (CLEAR); BILIRUBIN,URINE NEGATIVE (NEGATIVE); BLOOD, URINE 2+ (NEGATIVE); COLOR,URINE RED (YELLOW); LEUKOCYTE ESTERASE ,URINE TRACE (NEGATIVE); NITRITE, URINE POSITIVE (NEGATIVE); PH,URINE 5.5 (5.0-9.0); UGLUCOSE NEGATIVE (NEGATIVE)
[2022-06-25 18:40] LABS: RBC,URINE NONE SEEN /HPF (0-5)
[2022-06-25] MEDS ORDERED: CEPH-588 PO (18:54)
[2022-06-25 22:31] VITALS: BP 138/60
--- NOTE | 2022-06-25 22:31 | NUR ---
Patient discharged with v/s stable. Written and verbal after care instructions given and explained. Patient verbalized understanding. Ambulance Transport with to assisted. All questions addressed prior to discharge. Advised to follow up with PMD. PT WENT BACK TO [facility]
== END 2022-06-25 22:31 | disposition home or self-care (01) ==
LOC: MED 13:34
DX: N39.0 Urinary tract infection, site not specified (principal); Z20.822 Contact with and (suspected) exposure to COVID-19; F03.90 Unspecified dementia, unspecified severity, without behavioral disturbance, psychotic disturbance, mood disturbance, and anxiety; I10 Essential (primary) hypertension; Z79.899 Other long term (current) drug therapy
CPT/HCPCS: 36415; 74177; 80053; 81001; 83690; 84484; 85025; 87086; 87426; 93005; 96361; 96374; 99285; J2405; J7030; Q9967

== ENCOUNTER 2022-09-01 07:46 | Emergency (ER) | payer OTHER, MEDICAID ==
[~2022-09-01] VITALS: Ht 157.5 cm; Wt 63.5 kg
[2022-09-01 07:46] VITALS: BP 164/71
[~2022-09-01 07:46] MED LIST changes: +CEPH-588 PO
--- NOTE | 2022-09-01 07:46 | NUR ---
PT. TO BED 7, MD AT BEDSIDE. PT. WITH NO ACUTE DISTRESS. NO ACUTE BLEEDING
--- NOTE | 2022-09-01 07:49 | NUR ---
BIBA BLS TO ER BED 7
--- NOTE | 2022-09-01 08:20 | NUR ---
pt. admitted for head laceration d/t fall, small laceration to back of head, no active bleeding noted Pt. A&O x2 (name, place, possible baseline) slightly confused on admission, content demeanor clear breath sounds ant. & post., normal rate & rhythm no complaint of sob or difficulty breathing PERRL, small hematoma to back of head. pain 5/10, denies any dizziness. no hip tenderness, no external rotation
--- NOTE | 2022-09-01 08:29 | NUR ---
pt to ct via JASVIR asher
[2022-09-01] MEDS ORDERED: LIDOCAINE 1% 500 MG/ 50 ML VIAL INJ ONE (09:45)
[2022-09-01] MEDS ORDERED: LIDOCAINE MPF 1% 5 ML ONE (09:49)
--- NOTE | 2022-09-01 09:56 | NUR ---
LACERATION REPAIR TRAY, LIDOCAINE, AND STAPLE MACHINE AT BEDSIDE FOR MD TO REPAIR LAC TO BACK OF HEAD. PT. WITH NO ACUTE BLEEDING. NO DISTRESS.
--- NOTE | 2022-09-01 11:17 | NUR ---
natali in place over lac, no active bleeding, pt now awaits to be transferred to facility, transport has been arranged, ETA 1230-1PM
--- NOTE | 2022-09-01 12:17 | NUR ---
pt to be taken back to [place], [place] [phone], report to Lilia at [facility]
[2022-09-01 13:02] VITALS: BP 148/80
--- NOTE | 2022-09-01 13:04 | NUR ---
pt back to [facility], report to EMTThom and receiving nurse at the place pt to follow up w pmd in 3 days, Patient discharged with v/s stable. Written and verbal after care instructions given and explained. Patient verbalized understanding. Ambulance Transport with to [facility]. All questions addressed prior to discharge. Advised to follow up with PMD.
== END 2022-09-01 13:02 | disposition home or self-care (01) ==
LOC: MED 07:46
DX: S01.01XA Laceration without foreign body of scalp, initial encounter (principal); W18.30XA Fall on same level, unspecified, initial encounter; Y93.89 Activity, other specified; Y92.89 Other specified places as the place of occurrence of the external cause; Y99.8 Other external cause status
CPT/HCPCS: 12001; 70450; 72125; 90471; 99285; J2001

== ENCOUNTER 2022-11-30 14:06 | Emergency (ER) | payer OTHER, MEDICAID ==
[~2022-11-30] VITALS: Ht 152.4 cm; Wt 44.9 kg
[2022-11-30 14:14] VITALS: BP 150/66; PULSE 64; RESP 16; O2SAT 97
[2022-11-30 15:44] VITALS: BP 140/74; PULSE 60; RESP 16; O2SAT 98
== END 2022-11-30 16:44 | disposition home or self-care (01) ==
LOC: MED 14:06
DX: S16.1XXA Strain of muscle, fascia and tendon at neck level, initial encounter (principal); S09.90XA Unspecified injury of head, initial encounter; F03.90 Unspecified dementia, unspecified severity, without behavioral disturbance, psychotic disturbance, mood disturbance, and anxiety; I10 Essential (primary) hypertension; Z79.899 Other long term (current) drug therapy; W19.XXXA Unspecified fall, initial encounter; Y93.89 Activity, other specified; Y92.89 Other specified places as the place of occurrence of the external cause; Y99.8 Other external cause status
CPT/HCPCS: 70450; 71045; 72125; 99284

== ENCOUNTER 2023-05-09 09:19 | Emergency (ER) | payer OTHER, MEDICAID ==
[~2023-05-09] VITALS: Ht 162.6 cm; Wt 45.4 kg
[2023-05-09 09:23] VITALS: BP 122/54; PULSE 60; RESP 16; TEMP 98.7; O2SAT 99
== END 2023-05-09 12:30 | disposition home or self-care (01) ==
LOC: MED 09:19
DX: S09.90XA Unspecified injury of head, initial encounter (principal); M54.2 Cervicalgia; W06.XXXA Fall from bed, initial encounter; Y93.89 Activity, other specified; Y92.89 Other specified places as the place of occurrence of the external cause; Y99.8 Other external cause status
CPT/HCPCS: 70450; 72125; 99284